=== PATIENT | female | born 1935 | race Caucasian/White ===

== ENCOUNTER 2024-04-25 10:06 | Emergency (ER) | payer MEDICAID ==
--- NOTE | 2024-04-25 11:31 | RAD REPORT ---
EXAM DESCRIPTION: CT - Head C Spine Cap Wo Con - 04/25/2024 10:58 am CLINICAL HISTORY: Head and neck injury with chest and abdominal pain status post fall TECHNIQUE: Computed axial tomography of head, neck, chest, abdomen and pelvis obtained. IV and oral contrast not requested. Coronal and sagittal reconstruction performed. All CT scans are performed using dose optimization technique as appropriate and may include automated exposure control or mA/KV adjustment according to patient size. COMPARISON: None FINDINGS: An intracranial bleed is not seen. The ventricles are normal in caliber. An extra-axial fluid collection is not noted. Moderate low-density areas within periventricular, deep and subcortical white matter likely ischemic changes secondary to small vessel disease Fluid within the sinuses/mastoids is not seen. A cervical fracture is not seen. No dislocation is noted. Mild anterior subluxation C5 on C6. Mild posterior subluxation C6 on C7. Mild anterior subluxation C7 on T1. Marked spondylosis distal cervical spine The evaluation of mediastinum, ivon, vessels, solid organs and bowel are limited secondary to the lac k of contrast administration. A mediastinal hematoma is not noted. A pleural effusion is not seen. A lung contusion is not present. The liver,spleen, pancreas, adrenals,kidneys and bladder do not demonstrate an acute traumatic injury Mild fatty liver Small nonobstructing right renal calculus. Bilateral renal cortical thinning. Calcification adjacent to the medial aspect right acetabular probably dystrophic Postsurgical changes hips and right shoulder IMPRESSION: No acute intracranial abnormality is seen. A cervical fracture is not visualized. If the patient continues to have symptoms to suggest intracran ial/spinal cord pathology MRI be recommended No acute traumatic abnormality involving the chest, abdomen or pelvis
[2024-04-25] MEDS ORDERED: NA CHLORIDE 0.9% 500 ML ONE ×2 (11:43→13:16)
[2024-04-25 11:55] LABS: Absolute Eosinophils 0.2 K/uL (0-0.5); Absolute Lymphocytes (CBC) 2.4 K/uL (0.7-4.9); Absolute Monocytes 0.6 K/uL (0.1-1.3); Absolute Neutrophil 2.2 K/uL (1.8-8.0); Basophils % 0.6 % (0-1.3); Eosinophils % 3.6 % (0-4.4); Hematocrit 45.9 % (36.0-45.0); Hemoglobin 15.1 g/dL (12.0-15.0); Lymphocytes % 44.6 % (15.3-44.8); MCH 31.7 pg (27.0-35.0); MCV 96.1 fL (80-100); Monocytes % 10.6 % (3.3-12.3); Neutrophils % 40.6 % (41.7-73.7); Nucleated Red Blood Cells % 0.2 % (0-0); Platelets 225 thou/uL (152-406); RBC Red Blood Cell Count 4.77 M/uL (3.86-4.86); Red Cell Distribution Width 14.2 % (12.1-15.2)
[2024-04-25 12:01] LABS: PT Prothrombin Time 18.8 SECONDS (9.4-12.5); PTT, Activated Partial Thromb 35.2 SECONDS (24.3-36.9); Protime INR 1.74
[2024-04-25 12:05] LABS: Specific Gravity 1.008 (1.005-1.030); Sqamous Epithelial <5 /HPF (None Seen); Transitional Epithelial <5 /HPF (None Seen); Urine Bacteria 20-50 /HPF (<20); Urine Bilirubin NEGATIVE (Negative); Urine Blood Negative (Negative); Urine Clarity Extremely Turbid (Clear); Urine Color Yellow (Yellow); Urine Culture Reflex Order REFLEXED; Urine Glucose NEGATIVE (Negative); Urine Ketones NEGATIVE (Negative); Urine Microscopic Reflex YN ORDER UMIC; Urine Mucus Slight /HPF (None Seen); Urine Nitrite NEGATIVE (Negative); Urine Protein NEGATIVE (Negative); Urine RBC <5 /HPF (None Seen); Urine Urobilinogen Normal (Normal); Urine WBC 20-50 /HPF (<5); Urine pH 5.5 (5.0-7.0)
[2024-04-25 12:05] LABS: SARS-CoV-2 Antigen CONTROL BLUE LINE VIS/BG OK
[2024-04-25 12:07] LABS: SARS-CoV-2 Antigen Rapid Res Positive (Negative)
[2024-04-25 12:09] LABS: Anion Gap 11.7 mEq/L (5.0-15.0); Potassium 3.7 mEq/L (3.5-5.1)
[2024-04-25] MEDS ORDERED: CIPROFLOXACIN 400mg IV 400 MG/200 ML BAG IV ONE (12:42)
--- NOTE | 2024-04-25 14:07 | EDPHYS ---
Physician Documentation [facility] Name: Anahi Gross Age: 89 yrs Sex: Female : 1935 Arrival Date: 04/25/2024 Time: 10:06 Bed 6 Private MD: ED Physician Estuardo Devine HPI: 04/25 13:02 This 89 yrs old Female presents to ER via Wheelchair with complaints of Fall Injury, rn Head Injury-Adult. 13:02 Onset: The symptoms/episode began/occurred 3 day(s) ago. Associated injuries: The rn patient sustained injury to the head. Severity of symptoms: At their worst the symptoms were mild, in the emergency department the symptoms are unchanged. The patient has not experienced similar symptoms in the past. Daughter reports fall 3 days ago, hit head on the back of head, no LOC, on Eliquis. Daughter states sleeping a lot since then. Patient reports pain to the head and back.. Historical: - Allergies: 10:39 PENICILLINS; jl7 - Home Meds: 10:39 Eliquis 2.5 mg oral tablet [Active]; jl7 - PMHx: 10:39 Hypercholesterolemia; Hypertensive disorder; CVA; cardiac stents; jl7 - Immunization history:: Adult Immunizations unknown. - Infectious Disease History:: Had something from a shoulder surgery but cannot remember the name. - Social history:: Smoking status: Patient denies any tobacco usage or history of. ROS: 13:03 Constitutional: Negative for fever, chills, and weight loss, Neck: Negative for injury, rn pain, and swelling, Cardiovascular: Negative for chest pain, palpitations, and edema, Respiratory: Negative for shortness of breath, cough, wheezing, and pleuritic chest pain, Abdomen/GI: Negative for abdominal pain, nausea, vomiting, diarrhea, and constipation, Back: Positive for mild back pain : Negative for injury, bleeding, discharge, and swelling, MS/Extremity: Negative for injury and deformity, Skin: Negative for injury, rash, and discoloration, Neuro: Positive for headache and generalized weakness and malaise Exam: 13:03 Constitutional: This is a well developed, well nourished patient who is awake, alert, rn and in no acute distress. Head/Face: Normocephalic, atraumatic. Eyes: Pupils equal round and reactive to light, extra-ocular motions intact. Neck: No midline cervical tenderness Chest/axilla: No rib tenderness or crepitus Cardiovascular: Regular rate and rhythm. No pulse deficits. Respiratory: No increased work of breathing, no retractions or nasal flaring. Abdomen/GI: Soft, non-tender MS/ Extremity: Pulses equal, no cyanosis. Neurovascular intact. Full, normal range of motion. Equal circumference. Neuro: Awake and alert, GCS 15, oriented to person, place, time, and situation. Cranial nerves II-XII grossly intact. Motor strength 4/5 in all extremities. Sensory grossly intact. 14:05 ECG was reviewed by the Attending Physician. rn Vital Signs: 10:35 BP 135 / 75; Pulse 77; Resp 17; Temp 97.4; Pulse Ox 94% ; Weight 90.72 kg; Height 5 ft. jl7 7 in. ; Pain 8/10; 12:48 BP 139 / 71; Pulse 73; Resp 18; Pulse Ox 95% on R/A; ld1 13:53 BP 133 / 74; Pulse 69; Resp 18; Pulse Ox 97% on R/A; ld1 15:17 BP 143 / 78; Pulse 71; Resp 18; Pulse Ox 96% on R/A; ld1 10:35 Body Mass Index 31.32 (90.72 kg, 170.18 cm) jl7 10:35 Pain Scale: Adult jl7 MDM: 10:17 Patient medically screened. rn 14:05 Differential diagnosis: closed head injury, contusion, fracture, Dehydration, UTI. rn 14:06 Data reviewed: vital signs, nurses notes, lab test result(s), EKG, radiologic studies, rn CT scan, and as a result, I will discharge patient. Consideration of Admission/Observation Escalation of care including admission/observation considered. Admission considered, family and patient want to go home, patient is going to stay with family member.. Care significantly affected by the following chronic conditions: Hypertension, Atrial fibrillation. Counseling: I had a detailed discussion with the patient and/or guardian regarding the historical points, exam findings, and any diagnostic results supporting the discharge/admit diagnosis, lab results, radiology results, the need for outpatient follow up, to return to the emergency department if symptoms worsen or persist or if there are any questions or concerns that arise at home. ED course: I have personally reviewed all of the results, including but not limited to blood tests and imaging deemed necessary to safely discharge this patient at this time. All results given to and printed out for patient. I personally went over all the results with the patient and answered all questions. Patient will follow-up with PCP and or specialist as discussed. Return precautions given and understood.. 04/25 10:47 Order name: CBC with Diff; Complete Time: 12:36 rn 04/25 10:47 Order name: Protime (+inr); Complete Time: 12:36 rn 04/25 10:47 Order name: Ptt, Activated; Complete Time: 12:36 rn 04/25 10:47 Order name: Urinalysis w/ reflexes; Complete Time: 12:36 rn 04/25 10:47 Order name: SARS RAPID; Complete Time: 12:36 rn 04/25 10:47 Order name: Basic Metabolic Panel; Complete Time: 12:36 rn 04/25 12:09 Order name: Urine Culture EDPR 04/25 10:47 Order name: CT Traumagram (Head C Spine CAP wo con); Complete Time: 11:50 rn 04/25 10:48 Order name: EKG; Complete Time: 10:48 rn 04/25 10:47 Order name: IV Start; Complete Time: 11:53 rn 04/25 10:48 Order name: EKG - Nurse/Tech; Complete Time: 12:48 rn EC:05 Rate is 65 beats/min. Rhythm is irregularly irregular. QRS [place] is Normal. NC interval rn is normal. QRS interval is normal. QT interval is normal. No Q waves. T waves are Normal. No ST changes noted. Clinical impression: Atrial Fibrillation. Interpreted by me. Reviewed by me. Administered Medications: 11:53 Drug: NS 0.9% IV 500 ml IV at bolus once Route: IV; Rate: bolus; Site: left antecubital;ld1 12:47 Drug: Ciprofloxacin IVPB 400 mg 200 ml IVPB once over 60 mins Volume: 200 ml; Route: ld1 IVPB; Infused Over: 60 mins; Site: right forearm; 13:18 Drug: NS 0.9% IV 500 ml IV at bolus once Route: IV; Rate: bolus; Site: right forearm; ld1 Disposition Summary: 04/25/24 14:07 Discharge Ordered Notes: Location: Home rn Problem: new rn Symptoms: have improved rn Condition: Stable rn Diagnosis - SARS-associated coronavirus as the cause of diseases classified elsewhere rn - Dehydration rn - UTI/ Urinary tract infection, site not specified rn Followup: rn - With: Private Physician - When: As needed - Reason: Recheck today's complaints, Re-evaluation by your physician Discharge Instructions: - Discharge Summary Sheet rn - Dehydration, Elderly rn - Urinary Tract Infection, Adult rn - COVID-19 rn - Viral Illness, Adult rn Forms: - Medication Reconciliation Form rn - Antibiotic software development intern - Prescription Opioid Use rn - Patient Portal Instructions rn - Leadership Thank You Letter rn Prescriptions: - Cipro 500 mg Oral Tablet - take 1 tablet ORAL route every 12 hours for 7 days; 14 tablet; Refills: 0, rn Product Selection Permitted Signatures: Dispatcher [employer] Estuardo Dumont MD MD rn Leal, Jahala RN RN jl7 Zoey Gold RN RN ld1 Corrections: (The following items were deleted from the chart) 10:42 10:39 Infectious Disease History: Denies. gianna jl7
--- NOTE | 2024-04-25 14:07 | ER ---
Nurse's Notes [facility] Name: Anahi Gross Age: 89 yrs Sex: Female : 1935 Arrival Date: 04/25/2024 Time: 10:06 Bed 6 Private MD: Diagnosis: SARS-associated coronavirus as the cause of diseases classified elsewhere;Dehydration;UTI/ Urinary tract infection, site not specified Presentation: 04/25 10:35 Chief complaint: Patient's son or daughter states: Daughter, Sarah, reports Mechanical jl7 fall 3-4 days ago, hit the back of head on night stand, on the ground for 3-4 hours, brought her to daughter's house and daughter reports sleeping 23-24 hours a day. Pt reports pain to low back and across shoulders and intermittent headcaches. Coronavirus screen: At this time, the client does not indicate any symptoms associated with coronavirus-19. Ebola Screen: No symptoms or risks identified at this time. Initial Sepsis Screen: Does the patient meet any 2 criteria? No. Patient's initial sepsis screen is negative. Does the patient have a suspected source of infection? No. Patient's initial sepsis screen is negative. Risk Assessment: Do you want to hurt yourself or someone else? Patient reports no desire to harm self or others. Onset of symptoms was April 22, 2024. Care prior to arrival: None. 10:35 Method Of Arrival: Wheelchair jl7 10:35 Acuity: HIMA 2 jl7 Triage Assessment: 10:39 General: Appears in no apparent distress. uncomfortable, Behavior is calm, cooperative, jl7 appropriate for age. Pain: Complains of pain in back. 10:39 Neuro: Level of Consciousness is awake, alert, obeys commands, Oriented to person, jl7 place, time, situation. Cardiovascular: Patient's skin is warm and dry. Respiratory: Airway is patent Respiratory effort is even, unlabored, Respiratory pattern is regular, symmetrical. Derm: Skin is pink, warm \T\ dry. Historical: - Allergies: 10:39 PENICILLINS; jl7 - Home Meds: 10:39 Eliquis 2.5 mg oral tablet [Active]; jl7 - PMHx: 10:39 Hypercholesterolemia; Hypertensive disorder; CVA; cardiac stents; jl7 - Immunization history:: Adult Immunizations unknown. - Infectious Disease History:: Had something from a shoulder surgery but cannot remember the name. - Social history:: Smoking status: Patient denies any tobacco usage or history of. Screenin:[facility] ED Fall Risk Assessment (Adult) History of falling in the last 3 months, ld1 including since admission No falls in past 3 months (0 pts) Confusion or Disorientation No (0 pts) Intoxicated or Sedated No (0 pts) Impaired Gait No (0 pts) Mobility Assist Device Used No (0 pt) Altered Elimination No (0 pt) Score/Fall Risk Level 0 - 2 = Low Risk Oriented to surroundings, Maintained a safe environment, Educated pt \T\ family on fall prevention, incl call for assistance when getting out of bed, Assessed \T\ reinforced patient's understanding of fall precautions, Provided non-skid footwear, Hourly rounding (assess needs \T\ fall precautionary measures) done, Used ambulatory aids as needed (educated on \T\ assisted with), Used gait belt as appropriate. Abuse screen: Denies threats or abuse. Denies injuries from another. Nutritional screening: No deficits noted. Tuberculosis screening: No symptoms or risk factors identified. Assessment: 12:15 Reassessment: Purewick applied to patient. ld1 12:48 General: Appears in no apparent distress. comfortable, Behavior is calm, cooperative, ld1 appropriate for age. Pain: Denies pain. Neuro: Level of Consciousness is awake, alert, obeys commands, Oriented to person, place, time, situation, Appropriate for age. Cardiovascular: Capillary refill < 3 seconds Patient's skin is warm and dry. Respiratory: Airway is patent Respiratory effort is even, unlabored. GI: Abdomen is round non-distended. : No signs and/or symptoms were reported regarding the genitourinary system. EENT: No signs and/or symptoms were reported regarding the EENT system. Derm: No signs and/or symptoms reported regarding the dermatologic system. Musculoskeletal: No signs and/or symptoms reported regarding the musculoskeletal system. 13:53 Reassessment: Patient appears in no apparent distress at this time. No changes from ld1 previously documented assessment. Patient and/or family updated on plan of care and expected duration. Pain level reassessed. 15:17 Reassessment: Patient appears in no apparent distress at this time. No changes from ld1 previously documented assessment. Patient and/or family updated on plan of care and expected duration. Pain level reassessed. Vital Signs: 10:35 BP 135 / 75; Pulse 77; Resp 17; Temp 97.4; Pulse Ox 94% ; Weight 90.72 kg; Height 5 ft. jl7 7 in. ; Pain 8/10; 12:48 BP 139 / 71; Pulse 73; Resp 18; Pulse Ox 95% on R/A; ld1 13:53 BP 133 / 74; Pulse 69; Resp 18; Pulse Ox 97% on R/A; ld1 15:17 BP 143 / 78; Pulse 71; Resp 18; Pulse Ox 96% on R/A; ld1 10:35 Body Mass Index 31.32 (90.72 kg, 170.18 cm) jl7 10:35 Pain Scale: Adult jl7 ED Course: 10:14 Patient arrived in ED. im 10:17 Estuardo Devine MD is Attending Physician. rn 10:39 Triage completed. jl7 10:39 Arm band placed on right wrist. jl7 11:00 CT Traumagram (Head C Spine CAP wo con) In Process Unspecified. EDMS 11:00 Patient placed in an exam room, on a stretcher. iw 11:04 Zoey Gold, RN is Primary Nurse. ld1 11:53 Urinalysis w/ reflexes Sent. ld1 11:53 Ptt, Activated Sent. ld1 11:53 SARS RAPID Sent. ld1 11:53 Basic Metabolic Panel Sent. ld1 11:53 CBC with Diff Sent. ld1 12:15 Patient has correct armband on for positive identification. Placed in gown. Bed in low ld1 position. Call light in reach. Side rails up X2. Pulse ox on. NIBP on. Door closed. Noise minimized. Warm blanket given. 12:15 No provider procedures requiring assistance completed. Inserted saline lock: 20 gauge ld1 in right forearm, using aseptic technique. Blood collected. 15:18 IV discontinued, intact, bleeding controlled, No redness/swelling at site. ld1 Administered Medications: 11:53 Drug: NS 0.9% IV 500 ml IV at bolus once Route: IV; Rate: bolus; Site: left antecubital;ld1 12:47 Drug: Ciprofloxacin IVPB 400 mg 200 ml IVPB once over 60 mins Volume: 200 ml; Route: ld1 IVPB; Infused Over: 60 mins; Site: right forearm; 13:18 Drug: NS 0.9% IV 500 ml IV at bolus once Route: IV; Rate: bolus; Site: right forearm; ld1 Medication: 12:15 VIS not applicable for this client. ld1 Outcome: 14:07 Discharge ordered by . rn 15:18 Discharged to home ambulatory, ld1 15:18 Condition: stable 15:18 Discharge instructions given to patient, Instructed on discharge instructions, follow up and referral plans. medication usage, Demonstrated understanding of instructions, follow-up care, medications, Prescriptions given X 1, 15:18 Patient left the ED. ld1 Signatures: Dispatcher [employer] EDBhavna Mendoza RN RN iw Estuardo Devine MD MD rn Leal, Jahala, RN RN jl7 Zoey Gold RN RN ld1 Bisi Valerio Corrections: (The following items were deleted from the chart) 10:42 10:39 Infectious Disease History: Denies. gianna jl7
[2024-04-25 18:12] VITALS: BP 143/78; TEMP 97.4; O2SAT 96
--- NOTE | 2024-04-26 10:56 | EKG ---
Test Date: 2024-04-25 Test Time: 12:48:50 [place]: KIP MEASUREMENT RESULTS: Intervals: Rate: 65 [place]: QRSD: 104 QT: 466 QTc: 484 [place]: P: IL: QRS: 69 T: 81 INTERPRETIVE STATEMENTS: Atrial fibrillation with premature ventricular or aberrantly conducted complexes Abnormal ECG No previous ECG available for comparison Electronically Signed On 04-26-24 10:54:18 CDT by Garry Forrest
== END 2024-04-25 15:18 | disposition home or self-care (01) ==
LOC: ER 10:06
DX: U07.1 COVID-19 (principal); E86.0 Dehydration; N39.0 Urinary tract infection, site not specified; Z79.01 Long term (current) use of anticoagulants
CPT/HCPCS: 93005; 87088; 85025; 81001; 87086; 80048; 36415; 85610; 85730; 87077; 87186; 70450; 71250; 72125; 96374; 99284; 87811; J0744; J7040 ×2